=== PATIENT | male | born 1950 | race Caucasian/White ===

== ENCOUNTER → 2017-05-03 | Outpatient (CLI) | payer BC ==
[~2017-05-03] MED LIST: AMLO-114 PO; ATOR-22 PO; BNC/40 PO; LEVO125T72 PO; NAPR-1169 PO; OMEP20TA PO
== END | disposition home or self-care (01) ==
LOC: C.RDSM 11:15
PROVIDERS: ATTEND Family Medicine
DX: M25.511 Pain in right shoulder (principal)